=== PATIENT | female | born 1950 | race Caucasian/White ===

== ENCOUNTER → 2017-09-04 | Outpatient (CLI) | payer OTHER, BC ==
[~2017-09-04] MED LIST: AMLO-110 PO; ASPI81TA28 PO; ATOR10TA82 PO; CALC600T9 PO; IBUP1CAP9 PO; KRIL1CAP7 PO; LEVO75TA5 PO; MULTTAB58 PO; RXC5 PO
[2017-09-04 12:55] LABS: BASO % 0.9 %; BASO ABS # 0.04 K/uL (0-0.2); EOS % 2.3 %; HEMATOCRIT 39.4 % (37-47); HEMOGLOBIN 13.2 g/dL (12.0-16.0); IG# 0.01 K/uL (0.00-0.02); LYMPH % 31.8 %; LYMPH ABS # 1.41 K/uL (1.2-3.4); MEAN CELL VOLUME 89.3 fL (80-100); MEAN CORPUSCULAR HEMOGLOBIN 29.9 pg (25-34); MEAN CORPUSCULAR HGB CONC 33.5 g/dl (32-36); MEAN PLATELET VOLUME 10.5 fL (7.4-10.4); MONO % 13.1 %; MONO ABS # 0.58 K/uL (0.11-0.59); NEUT % 51.7 %; PLATELET COUNT 328 K/uL (130-400); RED CELL DISTRIBUTION WIDTH CV 13.2 % (11.5-14.5); RED CELL DISTRIBUTION WIDTH SD 43.1 fL (36.4-46.3); WHITE BLOOD COUNT 4.44 K/uL (4.8-10.8)
[2017-09-04 14:03] LABS: ALBUMIN 3.7 gm/dl (3.4-5.0); ALT/SGPT 25 U/L (12-78); BLOOD UREA NITROGEN 21 mg/dl (7-18); CARBON DIOXIDE 27 mmol/L (21-32); CHOLESTEROL 140 mg/dl (0-200); CREATININE 0.59 mg/dl (0.60-1.20); GLUCOSE 86 mg/dl (70-99); POTASSIUM 3.6 mmol/L (3.5-5.1); SODIUM 139 mmol/L (136-145)
[2017-09-04 14:13] LABS: ALKALINE PHOSPHATASE 66 U/L (45-117); AST/SGOT 22 U/L (15-37); LDL CHOLESTEROL CALCULATED 66 mg/dl; TOTAL PROTEIN 7.6 gm/dl (6.4-8.2)
== END | disposition home or self-care (01) ==
LOC: C.LABMFLN 08:46
PROVIDERS: ATTEND Family Medicine
DX: E03.9 Hypothyroidism, unspecified (principal); I10 Essential (primary) hypertension; E78.5 Hyperlipidemia, unspecified

== ENCOUNTER → 2017-09-29 | Outpatient (CLI) | payer OTHER, BC ==
[2017-09-29 18:12] LABS: BASO % 0.4 %; BASO ABS # 0.03 K/uL (0-0.2); EOS ABS # 0.15 K/uL (0-0.5); HEMATOCRIT 41.7 % (37-47); HEMOGLOBIN 13.7 g/dL (12.0-16.0); IG# 0.01 K/uL (0.00-0.02); LYMPH % 29.1 %; LYMPH ABS # 2.14 K/uL (1.2-3.4); MEAN CELL VOLUME 88.7 fL (80-100); MEAN CORPUSCULAR HEMOGLOBIN 29.1 pg (25-34); MEAN CORPUSCULAR HGB CONC 32.9 g/dl (32-36); MONO % 10.2 %; MONO ABS # 0.75 K/uL (0.11-0.59); NEUT % 58.2 %; NEUT ABS # 4.27 K/uL (1.4-6.5); PLATELET COUNT 364 K/uL (130-400); RED CELL DISTRIBUTION WIDTH CV 13.3 % (11.5-14.5); WHITE BLOOD COUNT 7.35 K/uL (4.8-10.8)
== END | disposition home or self-care (01) ==
LOC: C.LABMFLN 14:00
PROVIDERS: ATTEND Family Medicine
DX: E03.9 Hypothyroidism, unspecified (principal); D72.819 Decreased white blood cell count, unspecified

== ENCOUNTER → 2017-10-24 | Outpatient (CLI) | payer OTHER, BC | END | disposition home or self-care (01) | LOC: C.LABMFLN 14:45 | PROVIDERS: ATTEND Family Medicine | DX: E03.9 Hypothyroidism, unspecified (principal) ==

== ENCOUNTER → 2018-01-18 | Outpatient (CLI) | payer OTHER, BC ==
[~2018-01-18] MED LIST changes: -AMLO-110 PO; +AMLO5TAB3 PO; -IBUP1CAP9 PO; +IBUP200C80 PO
== END | disposition home or self-care (01) ==
LOC: C.LABMFLN 10:55
PROVIDERS: ATTEND Family Medicine
DX: E03.9 Hypothyroidism, unspecified (principal)